=== PATIENT | female | born 2000 | race Caucasian/White ===

== ENCOUNTER 2020-07-09 08:28 | Inpatient (IN) | payer OTHER ==
[~2020-07-09] VITALS: Ht 172.7 cm; Wt 30.8 kg
[~2020-07-09 08:28] MED LIST: IRON160 MG PO; VITAMIN C500 M4 PO
--- NOTE | 2020-07-10 00:45 | NUR ---
[facility] RAPID COVID TEST DONE PER ORDER. COVID TEST COLLECED FROM BOTH NARES W/O ISSUE. PT TOLERATED WELL.
[2020-07-10] MEDS ORDERED: PRENATAL VITAM1 EACH PO (02:04)
--- NOTE | 2020-07-10 10:38 | PR ---
[facility] [address] [facility] [place] [address] Signed Progress Notes IP Datetime Report Generated by CPN: 07/10/2020 10:38 PROGRESS NOTES: [id number] Impression: Normal Progression of Labor Procedures: Artificial ROM Plan: Continue Present Management; Anticipate Vaginal Delivery VITAL SIGNS: [id number] Vital Signs: Reviewed; Within Normal Limits EXAM: [id number] Dilatation: 3.0 Effacement: 80 Station: -3 MEMBRANES: [id number] Membranes Status: Ruptured Comments: Continue monitoring, may want Epidural later; ordered FETUS A: [id number] FHR Baseline: 120 Variability: Moderate 6-25bpm Accelerations: 15X15 Presentation: Vertex FETUS B: [id number] Signing Physician: Janeth Flores MD Copies: ~ *Electronically Signed* 07/10/20 1038 JANETH FLORES MD PATIENT NAME: ANA GREEN PROGRESS NOTE DATE OF : 00 PHYSICIAN: JANETH FLORES MD RPT #: [id number] REPORT IS CONFIDENTIAL AND NOT TO BE RELEASED WITHOUT AUTHORIZATION
--- NOTE | 2020-07-10 15:44 | PR ---
[facility] [address] [facility] [place], [place] [address] Signed Progress Notes IP Datetime Report Generated by CPN: 07/10/2020 15:44 PROGRESS NOTES: [id number] Impression: Normal Progression of Labor Procedures: Intrauterine Pressure Catheter; Scalp Electrode Plan: Continue Present Management; Anticipate Vaginal Delivery VITAL SIGNS: [id number] Vital Signs: Reviewed; Within Normal Limits EXAM: [id number] Dilatation: 6.0 Effacement: 80 Station: -2 MEMBRANES: [id number] Membranes Status: Ruptured Comments: Comfortable with Epiduiral. Several late and variable decels; tried moving side to side, increase IV, now improved. Internal monitors applied; will follow closely. FETUS A: [id number] FHR Baseline: 120 Variability: Moderate 6-25bpm Accelerations: 15X15 Presentation: Vertex FETUS B: [id number] Signing Physician: Janeth Flores MD Copies: ~ *Electronically Signed* 07/10/20 1544 JANETH FLORES MD PATIENT NAME: ANA GREEN PROGRESS NOTE DATE OF : 00 PHYSICIAN: JANETH FLORES MD RPT #: [id number] REPORT IS CONFIDENTIAL AND NOT TO BE RELEASED WITHOUT AUTHORIZATION
--- NOTE | 2020-07-10 19:07 | PR ---
[facility] [address] [facility] [place], [place] [address] Signed Progress Notes IP Datetime Report Generated by CPN: 07/10/2020 19:07 PROGRESS NOTES: [id number] Impression: Normal Progression of Labor Procedures: Intrauterine Pressure Catheter; Scalp Electrode Plan: Continue Present Management; Anticipate Vaginal Delivery VITAL SIGNS: [id number] Vital Signs: Reviewed; Within Normal Limits EXAM: [id number] Dilatation: 9.5 Effacement: 100 Station: -1 MEMBRANES: [id number] Membranes Status: Ruptured Comments: Fetus only tolerating patient being on left side. Will continue montoring closely, expect to [place] able to start pushing soon. FETUS A: [id number] FHR Baseline: 120 Variability: Moderate 6-25bpm Accelerations: 15X15 Presentation: Vertex FETUS B: [id number] Signing Physician: Willis Flores MD Copies: ~ *Electronically Signed* 07/10/201906 WILLIS FLORES MD PATIENT NAME: ANA GREEN PROGRESS NOTE DATE OF : 00 PHYSICIAN: WILLIS FLORES MD RPT #: [id number] REPORT IS CONFIDENTIAL AND NOT TO BE RELEASED WITHOUT AUTHORIZATION
--- NOTE | 2020-07-11 13:12 | PR ---
[facility] [address] [facility] [place] [address] Signed PP Progress Notes Datetime Report Generated by CPN: 07/11/2020 13:12 SUBJECTIVE: [id number] Pain: Within Normal Limits Nausea/Vomiting: Denies Vital Signs: [id number] Vital Signs: Reviewed; Within Normal Limits Notable Details: PP Hgb/Hct = 11.3/33.2 EXAM: Ongoing Abdomen/Uterus: Normal Lochia: Normal Extremities: Normal IMPRESSION/PLAN/PROCEDURES: [id number] Impression: Normal Progression Plan: Continue Present Management Procedures: None Progress Notes: Doing well, without complaint. Signing Physician: Janeth Flores MD Copies: ~ *Electronically Signed* 07/11/20 1312 JANETH FLORES MD PATIENT NAME: ANA GREEN PROGRESS NOTE DATE OF : 00 PHYSICIAN: JANETH FLORES MD RPT #: [id number] REPORT IS CONFIDENTIAL AND NOT TO BE RELEASED WITHOUT AUTHORIZATION
--- NOTE | 2020-07-12 09:42 | PR ---
[facility] [address] [facility] [place] [address] Signed PP Progress Notes Datetime Report Generated by CPN: 07/12/2020 09:42 SUBJECTIVE: [id number] Pain: Within Normal Limits Nausea/Vomiting: Denies Vital Signs: [id number] Vital Signs: Reviewed; Within Normal Limits Notable Details: PP Hgb/Hct = 11.3/33.2 EXAM: Ongoing Abdomen/Uterus: Normal Lochia: Normal Extremities: Normal IMPRESSION/PLAN/PROCEDURES: [id number] Impression: Normal Progression Plan: Discharge Procedures: None Progress Notes: Doing well, without complaint, ready to go home. Signing Physician: Janeth Flores MD Copies: ~ *Electronically Signed* 07/12/20 0942 JANETH FLORES MD PATIENT NAME: ANA GREEN PROGRESS NOTE DATE OF : 00 PHYSICIAN: JANETH FLORES MD RPT #: [id number] REPORT IS CONFIDENTIAL AND NOT TO BE RELEASED WITHOUT AUTHORIZATION
--- NOTE | 2020-07-12 12:43 | NUR ---
CHECKED WITH PT TO SEE IF SHE WANTED A VISIT BY TODAY. PT DECLINED, WILL FOLLOW NEEDED
== END 2020-07-12 11:30 | disposition home or self-care (01) | DRG 807 ==
LOC: FBC 08:28
PROVIDERS: ADMIT General Practice; ATTEND General Practice
PROC: 10E0XZZ Delivery of Products of Conception, External Approach (ICD-10-PCS; principal; 2020-07-10)
PROC: 0HQ9XZZ Repair Perineum Skin, External Approach (ICD-10-PCS; 2020-07-10)
PROC: 0UQMXZZ Repair Vulva, External Approach (ICD-10-PCS; 2020-07-10)
PROC: 10H07YZ Insertion of Other Device into Products of Conception, Via Natural or Artificial Opening (ICD-10-PCS; 2020-07-10)
PROC: 10907ZC Drainage of Amniotic Fluid, Therapeutic from Products of Conception, Via Natural or Artificial Opening (ICD-10-PCS; 2020-07-10)
PROC: 3E0P7VZ Introduction of Hormone into Female Reproductive, Via Natural or Artificial Opening (ICD-10-PCS; 2020-07-10)
PROC: 00HU33Z Insertion of Infusion Device into Spinal Canal, Percutaneous Approach (ICD-10-PCS; 2020-07-10)
PROC: 3E0R3BZ Introduction of Anesthetic Agent into Spinal Canal, Percutaneous Approach (ICD-10-PCS; 2020-07-10)
DX: O70.0 First degree perineal laceration during delivery (principal); Z37.0 Single live birth; Z3A.40 40 weeks gestation of pregnancy; O76 Abnormality in fetal heart rate and rhythm complicating labor and delivery; O71.82 Other specified trauma to perineum and vulva
CPT/HCPCS: 36415; 85027; A9270; C9803; J2590; J2795; J3010; J7121; U0003